=== PATIENT | female | born 1965 | race Caucasian/White ===

== ENCOUNTER 2017-01-03 18:13 | Emergency (ER) | payer SELFPAY ==
[~2017-01-03] VITALS: Ht 157.5 cm; Wt 66.0 kg
[~2017-01-03 18:13] MED LIST: AMIT50 PO; DICL75 PO; KLON2TAB PO; LORA-475 PO/NG; PROT40TA PO; THERM PO; THIA100T PO; VENTAER INH; XANA2TAB2 PO; ZOFR8TAB PO; blood pressure med PO
[2017-01-03 18:20] VITALS: BP 140/89; PULSE 114; RESP 18; TEMP 98.3; O2SAT 94
[2017-01-03] MEDS ORDERED: LORazepam 1 MG TAB PO ONE (18:30)
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
--- NOTE | 2017-01-03 19:38 | RADHPO ---
EXAM DATE/TIME: 01/03/2017 18:44 [facility] COMPARISON: No previous studies available for comparison. INDICATIONS : Cephalgia. RADIATION DOSE: 52.88 CTDIvol (mGy) MEDICAL HISTORY : Cardiovascular disease. Lupus. SURGICAL HISTORY : Tubal ligation. ENCOUNTER: Initial ACUITY: 1 day PAIN SCALE: 5/10 LOCATION: cranial TECHNIQUE: Multiple contiguous axial images were obtained of the head. Using automated exposure control and adj ustment of the mA and/or kV according to patient size, radiation dose was kept as low as reasonably a chievable to obtain optimal diagnostic quality images. FINDINGS: CEREBRUM: The ventricles are normal for age. No evidence of midline shift, mass lesion, hemorrhage or acute in farction. No extra-axial fluid collections are seen. POSTERIOR FOSSA: The cerebellum and brainstem are intact. The 4th ventricle is midline. The cerebellopontine angle i s unremarkable. EXTRACRANIAL: The visualized portion of the orbits is intact. SKULL: The calvaria is intact. No evidence of skull fracture. CONCLUSION: No acute disease. Geovanny Justin MD on January 03, 2017 at 19:36 Board Certified Radiologist. This report was verified electronically.
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
[2017-01-03] MEDS ORDERED: KETOROLAC TROMETHAMINE 60 MG/2 ML (IM) VIAL IM ONE (19:45)
[2017-01-03] MEDS ORDERED: IBUP-232 PO (19:48)
[2017-01-03 20:04] VITALS: BP 128/84
== END 2017-01-03 20:06 | disposition home or self-care (01) ==
LOC: PHEFT 18:13
DX: S16.1XXA Strain of muscle, fascia and tendon at neck level, initial encounter (principal); S39.012A Strain of muscle, fascia and tendon of lower back, initial encounter; S00.03XA Contusion of scalp, initial encounter; Y04.2XXA Assault by strike against or bumped into by another person, initial encounter
CPT/HCPCS: 70450; 72100; 72125; 96372; 99284; J1885

== ENCOUNTER 2017-04-15 13:47 | Emergency (ER) | payer OTHER ==
[~2017-04-15] VITALS: Ht 154.9 cm; Wt 63.0 kg
[~2017-04-15 13:47] MED LIST changes: -AMIT50 PO; -DICL75 PO; +IBUP-232 PO; -KLON2TAB PO; -LORA-475 PO/NG; -PROT40TA PO; -THERM PO; -THIA100T PO; -VENTAER INH; -XANA2TAB2 PO; -ZOFR8TAB PO; -blood pressure med PO
[2017-04-15 14:04] VITALS: BP 153/107; PULSE 110; RESP 18; TEMP 98.7; O2SAT 95
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
[2017-04-15] MEDS ORDERED: RESP: ALBUTEROL 2.5 MG/3 ML NEB (SCH) INH ONE (14:15)
[2017-04-15] MEDS ORDERED: SODIUM CHLORIDE 0.9% FLUSH 10 ML FLUSH IVF PRN (14:15)
[2017-04-15 14:34] VITALS: PULSE 98; O2SAT 94
[2017-04-15 15:54] LABS: BLOOD, URINE NEG (NEG); COMMENT (UR) CULT NOT INDICATED; CULTURE IF INDICATED CULT NOT INDICATED; GLUCOSE,URINE NEG (NEG); KETONE, URINE NEG (NEG); NITRITE,URINE NEG (NEG); SQUAMOUS EPITHELIAL CELL URINE 5 /hpf (0-5); URINE COLOR YELLOW (YELLW/STRAW)
[2017-04-15 16:01] LABS: AUTOMATED NEUTROPHIL # 6.4 TH/MM3 (1.8-7.7); BASOPHIL # 0.1 TH/MM3 (0-0.2); BASOPHIL % 0.6 % (0.0-2.0); EOSINOPHIL # 0.1 TH/MM3 (0-0.4); EOSINOPHIL % 1.2 % (0.0-4.0); HEMATOCRIT 47.9 % (35.0-46.0); HEMO FLAGS DIFF FINAL; LYMPHOCYTE # 2.7 TH/MM3 (1.0-4.8); MEAN CELL VOLUME 96.8 FL (80.0-100.0); MEAN CORPUSCULAR HEMOGLOBIN 32.8 PG (27.0-34.0); MEAN CORPUSCULAR HGB CONC 33.9 % (32.0-36.0); MONO % 6.1 % (0.0-8.0); NEUT % 65.1 % (16.0-70.0); PLATELET COUNT 195 TH/MM3 (150-450); RED BLOOD COUNT 4.95 MIL/MM3 (4.00-5.30); RED CELL DISTRIBUTION WIDTH 13.1 % (11.6-17.2); WHITE BLOOD COUNT 9.9 TH/MM3 (4.0-11.0)
[2017-04-15 16:18] LABS: AMPHETAMINE, URINE NEG (NEG); BARBITURATES, URINE NEG (NEG); COCAINE, URINE NEG (NEG)
[2017-04-15 16:21] LABS: ALT (GPT) 62 U/L (10-53); ANION GAP 8 MEQ/L (5-15); AST (GOT) 53 U/L (15-37); BICARBONATE 25.4 MEQ/L (21.0-32.0); BLOOD UREA NITROGEN 9 MG/DL (7-18); CHLORIDE 106 MEQ/L (98-107); GLOMERULAR FILTRATION RATE 130 ML/MIN (>89); POTASSIUM 3.8 MEQ/L (3.5-5.1); SODIUM (NA) 139 MEQ/L (136-145)
[2017-04-15 16:23] LABS: ACETAMINOPHEN 3.6 MCG/ML (10.0-30.0); ALKALINE PHOSPHATASE 106 U/L (45-117); TOTAL BILIRUBIN ADULT 0.3 MG/DL (0.2-1.0)
[2017-04-15 17:54] VITALS: BP 157/107; PULSE 94; RESP 18; O2SAT 94
[2017-04-15] MEDS ORDERED: NICOTINE 21 MG/24 HR PATCH T-DERMAL ONE (18:00)
[2017-04-15 19:14] VITALS: BP 163/102; PULSE 102; RESP 20; O2SAT 95
[2017-04-15] MEDS ORDERED: cloNIDine HCL 0.1 MG TAB PO ONE (20:00)
[2017-04-15 20:22] VITALS: BP 157/88; PULSE 97; RESP 18; TEMP 97; O2SAT 95
[2017-04-15 22:05] VITALS: BP 120/81; PULSE 94; RESP 18; O2SAT 98
[2017-04-16] MEDS ORDERED: PROCHLORPERAZINE INJ 10 MG/2 ML VIAL IM ONE (00:15)
[2017-04-16] MEDS ORDERED: diphenhydrAMINE HCL 50 MG/ML VIAL IM ONE (00:15)
[2017-04-16 02:20] VITALS: BP 116/66; PULSE 93; RESP 18; O2SAT 95
--- NOTE | 2017-04-16 09:02 | PD ---
History of Present Illness Chief Complaint: Psychiatric Symptoms Time Seen by Provider: 08:50 Travel History International Travel<30 Days: No Contact w/Intl Traveler<30days: No Known affected area: No Legal Status Legal Status: Hussein Act Hussein Act Signed By: Srikanth Garrison Hussein Act Comment: 04/15/17 7211 History of Present Illness: History of Present Illness HPI Patient is a 51 year old female with no previous psychiatric history comes in under a Hussein act by police for suicidal ideation. The report alleges that she took 50 Xanax pills and made statements of wanting to kill herself. ED documentation is reviewed and included here in this report; " Patient states that her boyfriend called the police on her and she did not want to go to prison so she took "a few" 2 mg Xanax to try and kill her self. Patient's uncertain how many she took. Patient states that she splits her boyfriend's prescription with him each month as she is not able to get in with a doctor herself secondary to not having insurance. Patient also reports that she takes pain medication that she also gets from her boyfriend and she did not get to take any today." Patient seen. record reviewed. Patient was evaluated by Dr. De Guzman in 2014 after she overdosed on medication.At that time she declined admission to psychiatry and was released. Alert, oriented, calm and engaging. Speech is clear and logical. She is requesting discharge . She states that her public safety telecommunicator has told her she has a court date and she is most likely not going to go to prison. She also wants to be discharged because she is scheduled to go to work and does not want to be fired. She denies that she took the Xanax as a suicide attempt but rather as a way of not having to go to she. It appears that she was engaged in an altercation with her boyfriend when the police were called. No psychosis, no shai. Denies any suicidal or homicidal ideation, intent or plan. Patient at this time is minimizing her use of benzos. PFSH Past Medical History Autoimmune Disease: Yes (LUPUS) Anxiety: Yes Depression: Yes Cancer: No Cardiovascular Problems: Yes COPD: Yes Diminished Hearing: No Endocrine: No Gastrointestinal Disorders: No Genitourinary: No Hypertension: Yes Immune Disorder: Yes Implanted Vascular Access Dvce: No Musculoskeletal: No Psychiatric: Yes Reproductive: No Respiratory: Yes Immunizations Current: Yes Sickle Cell Disease: No ?: Not Menopausal: Yes : 2 Para: 2 Miscarriage: 1 : 1 Tubal Ligation: Yes Past Surgical History Thoracic Surgery: Yes ("pneumothorax, the tube is still in my lung") Tonsillectomy: Yes Other Surgery: Yes (PNEUMOTHORAX) Psychiatric History Psychiatric History Hx Psychiatric Treatment: Hx of depression, anxiety and suicide attempt. Last [facility] admission for OD suicide attempt Aug 06 - Aug 14, 2015. History of Inpatient Treatment: Yes Guns or firearms in home: No Social History Single female. Lives with her boyfriend. never . No children. Completed seventh grade. works in [employer]. Hx Alcohol Use: No Hx Tobacco Use: Yes (3 PPD) Hx Substance Use: Yes (LETY HAMEED) Substance Use Type: Alcohol, Marijuana, Nicotine/Cigarettes, Prescription Medications, Benzos (Valium,Xanax), Cocaine Hx of Substance Use Treatment: No Family Psychiatric History Negative Allergies-Medications (Allergen,Severity, Reaction): Coded Allergies: Zyrtec (Verified Adverse Reaction, Severe, Joint pain, 01/03/17) Reported Meds & Prescriptions Reported Meds & Active Scripts Active Ibuprofen 600 Mg Tab 600 Mg PO Q6H PRN Review of Systems Except as stated in HPI: all other systems reviewed are Neg Exam Alert: Yes Lyme: Person (ox4) Mood: Calm Affect: Appropriate Speech: Clear, Logical Eye Contact: Normal Memory Intact: Comment (not impaired) Hallucinations: Other (neagtive) Delusions: No Suicidal: Ideation (deneis any) Homicidal: Ideation (denies any) Insight/Judgement Poor. Poor MDM Medical Decision Making Medical Record Reviewed: Yes Assessment/Plan 51 year old female with no previous psychiatric history who in context of substance intoxication and while involved in an argument with her boyfriend reported she had overdose on Xanax. The patient now tells me that she did not take more than 2 Xanax and that she did so in order not to be taken to prison since the police were called. At this time she is requesting to be discharged and she does nto meet criteria to be retained against her will. I have counseled her regarding abstinence. Lift BA and discharge. Orders Complete Blood Count With Diff (04/15/17 14:02) Comprehensive Metabolic Panel (04/15/17 14:02) Urinalysis - C+S If Indicated (04/15/17 14:02) Electrocardiogram (04/15/17 14:02) Oximetry (04/15/17 14:02) Iv Access Insert/Monitor (04/15/17 14:02) Ecg Monitoring (04/15/17 14:02) Psych Screen (04/15/17 14:02) Sodium Chloride 0.9% Flush (Ns Flush) (04/15/17 14:15) Drug Screen, Random Urine (04/15/17 14:02) Alcohol (Ethanol) (04/15/17 14:02) Salicylates (Aspirin) (04/15/17 14:02) Tylenol (Acetaminophen) (04/15/17 14:02) Albuterol Neb (Albuterol Neb) (04/15/17 14:15) Nicotine 21 Mg Patch.24 Hr (Habitrol 21 (04/15/17 18:00) Clonidine (Catapres) (04/15/17 20:00) Prochlorperazine Inj (Compazine Inj) (04/16/17 00:15) Diphenhydramine Inj (Benadryl Inj) (04/16/17 00:15) Diet Regular Basic (04/16/17 Breakfast) Results Vital Signs Date Time Temp Pulse Resp B/P Pulse Ox O2 Delivery O2 Flow Rate FiO2 04/16/17 02:20 93 18 116/66 95 04/15/17 22:05 94 18 120/81 98 Room Air 04/15/17 20:22 97.0 97 18 157/88 95 Room Air 04/15/17 19:14 102 20 163/102 95 Room Air 04/15/17 17:54 94 18 157/107 94 Nasal Cannula 3 04/15/17 14:34 98 94 Nasal Cannula 3 04/15/17 14:04 98.7 110 18 153/107 95 Laboratory Tests Test 04/15/17 04/15/17 14:45 14:50 Urine Color YELLOW Urine Turbidity HAZY Urine pH 5.0 Urine Specific [place] 1.011 Urine Protein NEG Urine Glucose (UA) NEG Urine Ketones NEG Urine Occult Blood NEG Urine Nitrite NEG Urine Bilirubin NEG Urine Urobilinogen LESS THAN 2.0 Urine Leukocyte Esterase NEG Urine WBC 2 Urine Squamous Epithelial 5 Cells Microscopic Urinalysis Comment CULT NOT INDICATED Urine Opiates Screen NEG Urine Barbiturates Screen NEG Urine Amphetamines Screen NEG Urine Benzodiazepines Screen POS Urine Cocaine Screen NEG Urine Cannabinoids Screen POS White Blood Count 9.9 Red Blood Count 4.95 Hemoglobin 16.2 Hematocrit 47.9 Mean Corpuscular Volume 96.8 Mean Corpuscular Hemoglobin 32.8 Mean Corpuscular Hemoglobin 33.9 Concent Red Cell Distribution Width 13.1 Platelet Count 195 Mean Platelet Volume 8.8 Neutrophils (%) (Auto) 65.1 Lymphocytes (%) (Auto) 27.0 Monocytes (%) (Auto) 6.1 Eosinophils (%) (Auto) 1.2 Basophils (%) (Auto) 0.6 Neutrophils # (Auto) 6.4 Lymphocytes # (Auto) 2.7 Monocytes # (Auto) 0.6 Eosinophils # (Auto) 0.1 Basophils # (Auto) 0.1 CBC Comment DIFF FINAL Differential Comment Sodium Level 139 Potassium Level 3.8 Chloride Level 106 Carbon Dioxide Level 25.4 Anion Gap 8 Blood Urea Nitrogen 9 Creatinine 0.50 Estimat Glomerular Filtration 130 Rate Random Glucose 96 Calcium Level 8.7 Total Bilirubin 0.3 Aspartate Amino Transf 53 (AST/SGOT) Alanine Aminotransferase 62 (ALT/SGPT) Alkaline Phosphatase 106 Total Protein 7.0 Albumin 3.8 Salicylates Level 4.8 Acetaminophen Level 3.6 Ethyl Alcohol Level 4 Diagnosis Primary Impression: Benzodiazepine abuse Additional Impression: Adjustment disorder Ruled Out: Suicidal ideation Psychiatrically Cleared: Yes Med/ Other Pt Specific Info: No Change to Meds Disposition: 01 DISCHARGE HOME Condition: Stable Problem Qualifiers Additional Impression: Adjustment disorder Qualified Code: F43.22 - Adjustment disorder with anxious mood Heena Alvarez Apr 16, 2017 09:02
--- NOTE | 2017-04-17 10:09 | EKG ---
Date Performed: 04/15/2017 Time Performed: 14:47:23 PTAGE: 51 years EKG: Sinus rhythm NORMAL ECG PREVIOUS TRACING : 08/06/2015 10.47 DOCTOR: Monty Luevano Interpretating Date/Time 04/17/2017 09:53:04
== END 2017-04-16 09:15 | disposition home or self-care (01) ==
LOC: NEPC 13:47 → NEPJ 04-16 09:15
DX: F43.22 Adjustment disorder with anxiety (principal); F17.200 Nicotine dependence, unspecified, uncomplicated; I10 Essential (primary) hypertension; M32.9 Systemic lupus erythematosus, unspecified
CPT/HCPCS: 80053; 80307; 81001; 85025; 93005; 96372; 99284; J0780; J1200

== ENCOUNTER 2017-09-23 22:14 | Emergency (ER) | payer SELFPAY ==
[~2017-09-23] VITALS: Ht 154.9 cm; Wt 65.0 kg
[2017-09-23 22:23] VITALS: BP 99/58; PULSE 120; RESP 20; TEMP 98.5; O2SAT 95
[2017-09-23] MEDS ORDERED: BACL10TA PO (22:43)
[2017-09-23] MEDS ORDERED: XANA2TAB2 PO (22:43)
[2017-09-23] MEDS ORDERED: PERC5TAB12 PO (22:43)
[2017-09-23] MEDS ORDERED: LISI10TA3 PO (22:47)
[2017-09-23] MEDS ORDERED: AMOX500C PO (22:47)
--- NOTE | 2017-09-23 22:53 | PD ---
HPI Chief Complaint: Respiratory Distress Time Seen by Provider: 22:51 Travel History International Travel<30 days: No Contact w/Intl Traveler<30days: No Traveled to known affect area: No History of Present Illness HPI 51-year-old female patient with history of COPD, presents to the ER today for several days history of worsening dyspnea on exertion, shortness of breath, coughing, nausea, not doing well at home because she states that her nebulizer is broken. She has also been feeling feverish. Modifying Factors: None Associated Signs & Symptoms: Cough, shortness of breath, nausea, fevers subjectively Risk Factors: COPD history PFSH Past Medical History Autoimmune Disease: Yes (LUPUS) Anxiety: Yes Depression: Yes Cancer: No Cardiovascular Problems: Yes COPD: Yes Diminished Hearing: No Endocrine: No Gastrointestinal Disorders: No Genitourinary: No Hypertension: Yes Immune Disorder: Yes Implanted Vascular Access Dvce: No Musculoskeletal: No Psychiatric: Yes Reproductive: No Respiratory: Yes Immunizations Current: Yes Sickle Cell Disease: No Tetanus Vaccination: Unknown ?: Not Menopausal: Yes : 2 Para: 2 Miscarriage: 1 : 1 Tubal Ligation: Yes Past Surgical History Thoracic Surgery: Yes ("pneumothorax, the tube is still in my lung") Tonsillectomy: Yes Other Surgery: Yes (PNEUMOTHORAX, LIPOSUCTION, BREAST AUG, TUMMY TUCK.) Social History Alcohol Use: No Tobacco Use: Yes (3 PPD) Substance Use: No Allergies-Medications (Allergen,Severity, Reaction): Coded Allergies: cetirizine (Unverified Adverse Reaction, Severe, Joint pain, 09/23/17) Reported Meds & Prescriptions Reported Meds & Active Scripts Active Reported Amoxicillin 500 Mg Cap 500 Mg PO TID Lisinopril 10 Mg Tab 10 Mg PO DAILY Percocet (Oxycodone-Acetaminophen) 5-325 mg Tab 1 Tab PO Q4H PRN Xanax (Alprazolam) 2 Mg Tab 2 Mg PO Q8H PRN Baclofen 10 Mg Tab 10 Mg PO Q8HR Review of Systems Except as stated in HPI: all other systems reviewed are Neg Physical Exam Narrative GENERAL: Well-developed anxious appearing middle age white female patient in mild respiratory distress. Awake, alert, oriented 3. Able to speak in complete sentences. SKIN: Focused skin assessment warm/dry. HEAD: Atraumatic. Normocephalic. EYES: Pupils equal and round. No scleral icterus. No injection or drainage. ENT: No nasal bleeding or discharge. Mucous membranes pink and moist. NECK: Trachea midline. No JVD. CARDIOVASCULAR: Regular rate and rhythm. No murmur appreciated. RESPIRATORY: Mild accessory muscle use. Decreased breath sounds throughout. Breath sounds equal bilaterally. GASTROINTESTINAL: Abdomen soft, non-tender, nondistended. Hepatic and splenic margins not palpable. MUSCULOSKELETAL: No obvious deformities. No clubbing. No cyanosis. No edema. NEUROLOGICAL: Awake and alert. No obvious cranial nerve deficits. Motor grossly within normal limits. Normal speech. PSYCHIATRIC: Appropriate mood and affect; insight and judgment normal. Data Data Last Documented VS Vital Signs Date Time Temp Pulse Resp B/P (MAP) Pulse Ox O2 Delivery O2 Flow Rate FiO2 09/23/17 23:28 93 Nasal Cannula 5.00 09/23/17 22:23 98.5 120 20 99/58 (72) Orders Orders Complete Blood Count With Diff (09/23/17 22:50) Comprehensive Metabolic Panel (09/23/17 22:50) B-Type Natriuretic Peptide (09/23/17 22:50) Act Partial Throm Time (Ptt) (09/23/17 22:50) Prothrombin Time / Inr (Pt) (09/23/17 22:50) Magnesium (Mg) (09/23/17 22:50) Ckmb (Isoenzyme) Profile (09/23/17 22:50) Troponin I (09/23/17 22:50) Influenzae A/B Antigen (09/23/17 22:50) Iv Access Insert/Monitor (09/23/17 22:50) Electrocardiogram (09/23/17 22:50) Ecg Monitoring (09/23/17 22:50) Oximetry (09/23/17 22:50) Oxygen Administration (09/23/17 22:50) Chest, Single Ap (09/23/17 22:50) Sodium Chloride 0.9% Flush (Ns Flush) (09/23/17 23:00) Methylprednisolone So Succ Inj (Solumedr (09/23/17 23:00) Albuterol-Ipratropium Neb (Duoneb Neb) (09/23/17 23:00) Labs Laboratory Tests Test 09/23/17 22:50 White Blood Count 12.4 TH/MM3 Red Blood Count 4.97 MIL/MM3 Hemoglobin 16.3 GM/DL Hematocrit 48.7 % Mean Corpuscular Volume 98.1 FL Mean Corpuscular Hemoglobin 32.9 PG Mean Corpuscular Hemoglobin Concent 33.5 % Red Cell Distribution Width 12.9 % Platelet Count 218 TH/MM3 Mean Platelet Volume 7.8 FL Neutrophils (%) (Auto) 71.1 % Lymphocytes (%) (Auto) 24.1 % Monocytes (%) (Auto) 3.8 % Eosinophils (%) (Auto) 0.5 % Basophils (%) (Auto) 0.5 % Neutrophils # (Auto) 8.8 TH/MM3 Lymphocytes # (Auto) 3.0 TH/MM3 Monocytes # (Auto) 0.5 TH/MM3 Eosinophils # (Auto) 0.1 TH/MM3 Basophils # (Auto) 0.1 TH/MM3 CBC Comment DIFF FINAL Differential Comment Prothrombin Time 10.8 SEC Prothromb Time International Ratio 1.0 RATIO Activated Partial Thromboplast Time 27.8 SEC Blood Urea Nitrogen 6 MG/DL Creatinine 0.65 MG/DL Random Glucose 130 MG/DL Albumin 4.1 GM/DL Calcium Level 8.8 MG/DL Magnesium Level 1.8 MG/DL Aspartate Amino Transf (AST/SGOT) 108 U/L Sodium Level 133 MEQ/L Potassium Level 3.4 MEQ/L Chloride Level 98 MEQ/L Carbon Dioxide Level 21.3 MEQ/L Anion Gap 14 MEQ/L Estimat Glomerular Filtration Rate 96 ML/MIN MDM Medical Decision Making Medical Screen Exam Complete: Yes Emergency Medical Condition: Yes Medical Record Reviewed: Yes Interpretation(s) Last 24 hours Impressions Chest X-Ray 09/23/17 2250 Signed Impressions: Service Date/Time: Saturday, September 23, 2017 22:56 - CONCLUSION: No infiltrates seen. Remote granulomatous disease. Rodri Angela MD Laboratory Tests Test 09/23/17 22:50 White Blood Count 12.4 TH/MM3 (4.0-11.0) Hemoglobin 16.3 GM/DL (11.6-15.3) Hematocrit 48.7 % (35.0-46.0) Neutrophils (%) (Auto) 71.1 % (16.0-70.0) Neutrophils # (Auto) 8.8 TH/MM3 (1.8-7.7) Blood Urea Nitrogen 6 MG/DL (7-18) Random Glucose 130 MG/DL (74-106) Aspartate Amino Transf (AST/SGOT) 108 U/L (15-37) Sodium Level 133 MEQ/L (136-145) Potassium Level 3.4 MEQ/L (3.5-5.1) Differential Diagnosis COPD exacerbation versus bronchitis versus pneumonia Narrative Course Chest x-ray did not show any signs of acute processes. Lab work was pending. Her site Medrol nebulizers have been initiated in the ER and she did feel some improvement. However, before was able to reassess her, she states that she did not know she was at [facility], wanted to go to [facility]. She at this point, states that she did not want to stay here further, wants to leave AGAINST MEDICAL ADVICE. In addition, she states that she does not want to be resuscitated on future visits. She wants me to put a note in her chart that she is a DNR, DO NOT RESUSCITATE. Patient denies any homicidal or suicidal ideation, is currently awake, alert, oriented 3,where she is. A DNR was placed in her record per patient request. However, due to incomplete lab work and incomplete treatment, a emergent medical issue cannot be completely ruled out at this point. She will be leaving AGAINST MEDICAL ADVICE. Patient states understanding regarding this issue as well. She should obtain further medical treatment as soon as possible. AMA: The risks of leaving against medical advice without further evaluation treatment were discussed with the patient. These risks include cardiac dysfunction, cardiac dysrhythmia, possible heart attack, possible stroke or . The patient indicated understanding of these risks and appeared to have the capacity to make this decision. Diagnosis Primary Impression: COPD (chronic obstructive pulmonary disease) Disposition: 07 AGAINST MEDICAL ADVICE Condition: Stable Marisol Ricci MD Sep 23, 2017 22:53
[2017-09-23] MEDS ORDERED: SODIUM CHLORIDE 0.9% FLUSH 10 ML FLUSH IVF PRN (23:00)
[2017-09-23] MEDS ORDERED: methylPREDNISolone SOD SUCC 125 MG/2 ML VIAL IV PUSH ONE (23:00)
[2017-09-23] MEDS: RESP: ALBUTEROL 2.5 MG/IPRATROPIUM 0.5 MG NEB (SCH) INH (23:20)
[2017-09-23 23:33] LABS: AUTOMATED NEUTROPHIL # 8.8 TH/MM3 (1.8-7.7); BASOPHIL # 0.1 TH/MM3 (0-0.2); BASOPHIL % 0.5 % (0.0-2.0); EOSINOPHIL # 0.1 TH/MM3 (0-0.4); EOSINOPHIL % 0.5 % (0.0-4.0); HEMATOCRIT 48.7 % (35.0-46.0); HEMO FLAGS DIFF FINAL; LYMPH % 24.1 % (9.0-44.0); MEAN CELL VOLUME 98.1 FL (80.0-100.0); MEAN CORPUSCULAR HEMOGLOBIN 32.9 PG (27.0-34.0); MEAN CORPUSCULAR HGB CONC 33.5 % (32.0-36.0); MONO % 3.8 % (0.0-8.0); NEUT % 71.1 % (16.0-70.0); PLATELET COUNT 218 TH/MM3 (150-450); RED BLOOD COUNT 4.97 MIL/MM3 (4.00-5.30); RED CELL DISTRIBUTION WIDTH 12.9 % (11.6-17.2); WHITE BLOOD COUNT 12.4 TH/MM3 (4.0-11.0)
--- NOTE | 2017-09-23 23:38 | RADRPT ---
EXAM DATE/TIME: 09/23/2017 22:56 [facility] COMPARISON: CHEST SINGLE AP, August 06, 2015, 13:02. CHEST SINGLE AP, August 14, 2015, 9:10. INDICATIONS : Chest pain. MEDICAL HISTORY : Hypertension. Cardiovascular disease. Chronic obstructive pulmonary disease. Lupus. SURGICAL HISTORY : Tubal ligation. Discectomy, lumbar ENCOUNTER: Initial ACUITY: 1 day PAIN SCORE: 10/10 LOCATION: Bilateral chest FINDINGS: A single view of the chest demonstrates the lungs to be symmetrically aerated without evidence of mas s, infiltrate or effusion. There is a calcified granuloma in the left mid/lower lung measuring up to 5 mm in size, stable from prior. The cardiomediastinal contours are unremarkable. Osseous structur es are intact. CONCLUSION: No infiltrates seen. Remote granulomatous disease. Rodri Angela MD on September 23, 2017 at 23:35 Board Certified Radiologist. This report was verified electronically.
[2017-09-23 23:47] LABS: APTT (PATIENT) 27.8 SEC (24.3-30.1); PROTHROMBIN TIME - PATIENT 10.8 SEC (9.8-11.6)
[2017-09-23 23:59] LABS: ANION GAP 14 MEQ/L (5-15); AST (GOT) 108 U/L (15-37); BICARBONATE 21.3 MEQ/L (21.0-32.0); BLOOD UREA NITROGEN 6 MG/DL (7-18); CHLORIDE 98 MEQ/L (98-107); GLOMERULAR FILTRATION RATE 96 ML/MIN (>89); MAGNESIUM 1.8 MG/DL (1.5-2.5); POTASSIUM 3.4 MEQ/L (3.5-5.1); SODIUM (NA) 133 MEQ/L (136-145)
[2017-09-24 00:12] LABS: ALKALINE PHOSPHATASE 85 U/L (45-117); ALT (GPT) 80 U/L (10-53); CREATINE KINASE 3933 U/L (26-192); TOTAL BILIRUBIN ADULT 0.4 MG/DL (0.2-1.0)
[2017-09-24 00:26] LABS: CKMB 3.8 NG/ML (0.5-3.6)
== END 2017-09-24 00:10 | disposition left against medical advice (07) ==
LOC: NEPE 22:14
DX: J44.9 Chronic obstructive pulmonary disease, unspecified (principal); I10 Essential (primary) hypertension; F17.200 Nicotine dependence, unspecified, uncomplicated; M32.9 Systemic lupus erythematosus, unspecified; Z79.899 Other long term (current) drug therapy
CPT/HCPCS: 71010; 80053; 82550; 82552; 83735; 83880; 84484; 85025; 85610; 85730; 94640; 94664; 96374; 99284; J2930